=== PATIENT | male | born 1965 | race Caucasian/White ===

== ENCOUNTER 2017-11-15 10:28 | Outpatient (CLI) | payer OTHER ==
--- NOTE | 2017-11-15 19:34 | XRAY Report ---
Reason: AM STIFFNES IN WRIST AND FINGERS Procedure Date: 11/15/2017 Accession Number: [id number] / [id number] Procedure: XR - Knee 3 View RT CPT Code: FULL RESULT: EXAM: RIGHT KNEE RADIOGRAPHY EXAM DATE: 11/15/2017 10:53 AM. CLINICAL HISTORY: Pain at the base of the patella. No known injury. COMPARISON: None. TECHNIQUE: 3 views. FINDINGS: Bones: Normal. No fractures or bone lesions. Joints: Minimal chondrocalcinosis patellar cartilage. Tiny osteophytes and mild irregularity of the posterior patella articulating cortex. Joint compartments normal caliber. Bones in anatomic alignment. Small effusion. Soft Tissues: Normal. No soft tissue swelling. IMPRESSION: 1. Small effusion. 2. Mild chondromalacia patella. RADIA
--- NOTE | 2017-11-16 09:41 | XRAY Report ---
Reason: AM STIFFNES IN WRIST AND FINGERS Procedure Date: 11/15/2017 Accession Number: [id number] / [id number] Procedure: XR - Hand 3 View BILAT CPT Code: FULL RESULT: EXAMS: 1. Right Hand Radiography 2. Left Hand Radiography EXAM DATE: 11/15/2017 11:33 AM. CLINICAL HISTORY: AM STIFFNESS IN WRIST AND FINGERS. COMPARISON: None. TECHNIQUE: 3 views each hand. FINDINGS: Right: Bones: No fractures or bone lesions. Joints: Minimal early first [facility] degenerative change. No subluxations. Soft Tissues: Unremarkable.. Left: Bones: No fractures or bone lesions. Joints: Minimal early first [facility] degenerative change. No subluxations. Soft Tissues: Unremarkable. IMPRESSION: Minimal early first [facility] joint degenerative change bilaterally. Otherwise negative bilateral hands. RADIA
== END 2017-11-15 10:29 | disposition home or self-care (01) ==
LOC: DI 10:28
PROVIDERS: ATTEND Family Medicine
DX: M22.41 Chondromalacia patellae, right knee (principal); M25.461 Effusion, right knee; M18.0 Bilateral primary osteoarthritis of first carpometacarpal joints

== ENCOUNTER 2018-12-03 13:20 | Outpatient (CLI) | payer OTHER ==
--- NOTE | 2018-12-03 15:33 | XRAY Report ---
Reason: L KNEE PAIN SWELLING Procedure Date: 12/03/2018 Accession Number: [id number] / [id number] Procedure: XRN - Knee 4 View LT CPT Code: FULL RESULT: EXAM: LEFT KNEE RADIOGRAPHY EXAM DATE: 12/03/2018 01:44 PM. CLINICAL HISTORY: Left knee pain swelling. COMPARISON: None. TECHNIQUE: 4 views. FINDINGS: Bones: Normal. No fractures or bone lesions. Joints: There is a joint effusion, no lipohemarthrosis. No subluxation. Soft Tissues: Normal. No soft tissue swelling. IMPRESSION: Joint effusion without significant degenerative changes visualized. RADIA
== END 2018-12-03 13:21 | disposition home or self-care (01) ==
LOC: DI.N 13:20
PROVIDERS: ATTEND Physician Assistant
DX: M25.462 Effusion, left knee (principal)

== ENCOUNTER 2019-01-18 13:46 | Outpatient (CLI) | payer OTHER ==
--- NOTE | 2019-01-20 08:15 | MRI Report ---
Reason: LT KNEE JOINT PAIN Procedure Date: 01/18/2019 Accession Number: [id number] / [id number] Procedure: MRI - Knee LT W/O CPT Code: Final Report FULL RESULT: EXAM: LEFT KNEE MRI WITHOUT CONTRAST EXAM DATE: 01/18/2019 02:04 PM. CLINICAL HISTORY: Left knee joint pain. COMPARISON: KNEE 4 VIEW LT 12/03/2018. TECHNIQUE: Multiplanar, multisequence T1-weighted and fluid-sensitive sequences of the knee without contrast. Other: None. FINDINGS: Cruciate ligaments: The anterior and posterior crucial ligaments appear intact. Medial meniscus: There is some heterogenous signal consistent with some superficial tearing or fibrillation at the femoral articular surface of the posterior horn. Otherwise intact. Lateral meniscus: Intact. No tear is identified. Collateral ligaments: The medial and fibular collateral ligaments appear intact. Bones and articular surfaces: Moderate cartilage thinning, fissuring and irregularity in the medial greater than patellofemoral compartments. Subchondral edema at the medial tibial plateau greater than medial femoral condyle. Minimal subchondral edema in the patellofemoral compartment. Large joint effusion. Extensor mechanism: The patellar tendon and quadriceps insertion appear intact. IMPRESSION: 1. Moderate medial greater than patellofemoral compartment osteoarthritis. 2. Large joint effusion. 3. Degenerative-appearing superficial tear or fibrillation at the femoral articular surface of the posterior horn medial meniscus. RADIA
== END 2019-01-18 13:47 | disposition home or self-care (01) ==
LOC: DI 13:46
PROVIDERS: ATTEND Orthopaedic Surgery Sports Medicine
DX: M17.12 Unilateral primary osteoarthritis, left knee (principal); M23.204 Derangement of unspecified medial meniscus due to old tear or injury, left knee

== ENCOUNTER 2020-07-30 13:22 | Outpatient (CLI) | payer OTHER ==
[2020-07-30 13:55] VITALS: BP 141/87
--- NOTE | 2020-07-30 13:55 | SLEEP CARE CONSULTATION ---
Information from patient questionnaire entered by Ramila Warner. I have reviewed and concur with the information entered by Ramila Warner. This document represents the service I personally performed and the decisions made by me, Tamie Montano ARNP. History of Present Illness Service Date and Time: 07/30/2020 1322 Reason for Visit: New patient Chief Complaint: reports: Unrefreshed sleep, Snoring, Excessive daytime sleepiness, Observed pauses in breathing, Fatigue, Frequent awakenings at night Date of Onset: 6 month to a year Usual bedtime: 10 pm Time it takes to fall asleep: 10 minutes or more Snores at night: Yes Observed to quit breathing while asleep: Yes Sleeps alone due to snoring: Yes (sometimes) Number of times waking at night: 1-3 Reasons for waking at night: reports: Gasping for air, Bathroom Toss, Turn, or Twitch while sleeping: Yes Recalls having dreams: Yes (sometimes) Usually gets out of bed at: 5:30 am Feels refreshed in the morning: No Morning headache: No Sleepy or fatigued during the day: Yes Ever fallen asleep while driving: No (almost; some drowsy driving) Takes day naps: No Dreams during day naps: No Prior sleep studies: Yes Year and Where: 2015 - [place] Additional HPI information: I had the pleasure of seeing MARK VASQUEZ today regarding the possibility of him having a sleep disorder. He had a prior study in 2016 in [place]. His current complaints are excessive daytime sleepiness, fatigue, frequent night awakenings, snoring and unrefreshed sleep. He feels he has all the signs of sleep apnea. He is waking up 1-2 times at night because he feel he can't breath. He has a fan pointed on his face and sleeps with head elevated to help him sleep at night. He feels his snoring, gasping for air and daytime fatigue is getting worse. He did have a HST that showed mild sleep apnea in 2016 but he never started any treatment at that time. He moved to [facility] and never follow up with it. He has gained over 40 pounds over the last 5 years. He comes in to reverify if he still has sleep apnea and start treatment if needed. 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 Patient is Single and lives in [place]. Have you smoked in the past 12 months: Yes (cigars, 1 on avg daily) Years of smokin Alcohol use: Yes Alcohol amount and frequency: 1 glass 1 time a week Caffeine use: Yes Caffeine amount and frequency: 1-2 cups daily Family History Family history of sleep disordered breathing: Yes Family Hx Sleep Apnea: Mother: Snoring Allergies and Home Medications Drug allergies reviewed: Yes (NKDA) Home medication list reviewed: Yes Allergy and home medication list: Omeprazole, just started 2 days ago Review of Systems Weight gain over past 5 years: 40 plus Cardiovascular: denies: high blood pressure Respiratory: reports: shortness of breath, wheeze Gastrointestinal: reports: heartburn Neurological: denies: headaches Psychiatric: denies: anxiety, depression Ear/Nose/Throat: reports: wisdom teeth removed. denies: tonsillectomy Endocrine: reports: sluggishness, too hot or cold (to hot) Physical Exam Blood Pressure: 141/87 Cuff size: wrist Heart Rate: 82 O2 Saturation: 97 Height: 5 ft 6 in Weight: 232 lb Body Mass Index: 37.4 BMI Classification: Obese Neck circumference: 18.75 (inches) Mouth and throat: narrow oropharynx Soft palate: long Hard palate: normal Uvula visualization: 25% Mallampati Class III Tongue: enlarged in size with teeth torres on lateral edges Tonsils: 2+ Neck: normal w/o lymphadenopathy or thyromegaly Heart: regular rate and rhythm Lungs: clear bilaterally Impression and Plan 1. Suspected Obstructive Sleep Apnea-Hypopnea Syndrome, as previously diagnosed and as suggested by a history of loud and irregular snoring, observed cessation of breath while asleep, gasping or choking in sleep, frequent awakening during the night, unrefreshed sleep, cognitive impairment, and excessive daytime sleepiness. Narrow oropharynx and obesity are common predisposing factors for obstructive sleep apnea-hypopnea syndrome. I recommend proceeding to polysomnography to confirm the diagnosis and to assess severity. If the patient has significant sleep disordered breathing, a manual CPAP titration study will also be performed to find the optimal treatment pressure. I informed the patient of what the sleep studies involve and after some discussion, obtained agreement to proceed. The pathophysiology of obstructive sleep apnea-hypopnea syndrome was discussed with the patient and health risks of cardiovascular and cerebrovascular disease if not treated. Risks of drowsy driving discussed in detail and patient advised to avoid long distance driving and to extractor puller at the first sign of drowsiness. Patient agreed to plan. * Schedule polysomnography +- manual CPAP titration study and return in 1-2 weeks after the study to discuss result and initiate therapy. * Avoid long distance driving or driving when feeling sleepy. * Avoid alcohol, sedative and muscle relaxant around bedtime. * Attempt to lose weight. * Review instructions provided by trained office staff on how to prepare for the sleep study. * Return for follow-up after sleep study completed. Counseling Topics: Weight loss health impact Visit Type: In Office Time Spent with Patient (minutes): 30 Provider Statement: I spent 100% of the Face to Face Visit with the patient with greater than 50% spent counseling the patient and coordination of care.
== END 2020-07-30 13:23 | disposition home or self-care (01) ==
LOC: SC 13:22
PROVIDERS: ATTEND Nurse Practitioner Family
DX: G47.10 Hypersomnia, unspecified (principal); R06.83 Snoring; R06.81 Apnea, not elsewhere classified; G47.8 Other sleep disorders; R41.89 Other symptoms and signs involving cognitive functions and awareness; F17.290 Nicotine dependence, other tobacco product, uncomplicated; E66.9 Obesity, unspecified; Z68.37 Body mass index [BMI] 37.0-37.9, adult
CPT/HCPCS: 99203; 99212

== ENCOUNTER 2020-08-11 13:14 | Outpatient (CLI) | payer OTHER | END 2020-08-11 13:15 | disposition home or self-care (01) | LOC: SC 13:14 | PROVIDERS: ATTEND Nurse Practitioner Family | DX: G47.33 Obstructive sleep apnea (adult) (pediatric) (principal); R09.02 Hypoxemia; E66.9 Obesity, unspecified; Z68.37 Body mass index [BMI] 37.0-37.9, adult | CPT/HCPCS: 95806 ==

== ENCOUNTER 2020-08-25 16:52 | Outpatient (CLI) | payer OTHER ==
--- NOTE | 2020-08-25 17:05 | SLEEP CARE CONSULTATION ---
Information from patient questionnaire entered by Heather Garza. I have reviewed and concur with the information entered by Heather Garza. This document represents the service I personally performed and the decisions made by , Tamie Montano ARNP. History of Present Illness Service Date and Time: 08/25/2020 1700 Initial [place] Sleepiness Scale score: 14 (in 2020) Current [place] Sleepiness Scale score: 14 Additional HPI information: MARK VASQUEZ returns via Telehealth visit for follow up and results of the recently performed home sleep study. I explained the pathophysiology behind obstructive sleep apnea. We then spent quite a bit of time discussing different treatment options. For mild obstructive sleep apnea, surgery and oral appliance are alternatives to nasal CPAP therapy but in moderate or severe cases, nasal CPAP is the most effective and reliable treatment. Because apnea is primarily in supine position, then positional management therapy could be effective. Methods discussed such as positioning with pillows, using a T-shirt with tennis balls in the back, and shown commercial products that have a pillow format on back to prevent supine sleep. I reviewed the impact of weight changes on sleep apnea and strongly recommended losing weight. After some discussion, the patient opted to go with the nasal CPAP therapy. Nasal autoCPAP set at 4-15 cmH20 will be ordered with rationale explained. A manual titration study will be ordered if unable to find optimal pressure with office adjustments. I explained how CPAP machine works and what to expect when using the machine. Using CPAP every night in order to get used to it was emphasized. Patient advised to put CPAP mask on before getting into bed so as not to fall asleep without CPAP. To assist acclimation to CPAP use, it could also be used for a s hort time during day while reading or watching TV. Patient counseled not drink alcohol less than 4 hours before bedtime as it can increase snoring and apnea. Patient was cautioned about risks of drowsy driving until sleepiness symptoms resolve. Sleep Study - Results Type of Sleep Study: Home sleep study Prior sleep studies: Yes Year and Where: 2015 - [place] Polysomnography/Home Sleep Study results: Physician Impression: The quality of the study is good. The length of the study is adequate (> 240 minutes). Please also see the tabulated and graphic data. 1. Obstructive Sleep Apnea-Hypopnea (ICD-10 G47.33), severe, with an AHI of 50.9 /hr and lotus SaO2 of 73%. During the study, the patient had 273 apneas (273 obstructive, 0 central, 0 mixed) and 63 hypopneas. The longest episode lasted 84.5 seconds. The patient did not sleep supine during this study (supine AHI was 0 and non-supine, 50.95). 2. Hypoxemia (ICD-10 R09.02), moderate, with the lowest oxygen saturation of 73 % and 84.0 minutes with SaO2 under 90%. Baseline oxygen saturation was normal (Average oxygen saturation was 91%). Allergies and Home Medications Home medication list reviewed: Yes (no changes) Review of Systems Review of systems same as previous: Yes (no changes) Physical Exam Vital signs obtained and entered by: Telehealth visit to reduce exposure during Covid pandemic Height: 5 ft 6 in Impression and Plan 1. Obstructive Sleep Apnea-Hypopnea Syndrome, severe, with lowest oxygen saturation of 73%. Obviously this is the cause of the patients symptoms of unrefreshed sleep, and excessive daytime sleepiness. Positive pressure therapy could benefit his gastric reflux. As mentioned above, the patient will be started on nasal autoCPAP therapy with pressure set at 4-15 cmH2O. A manual titration study will be completed if unable to find optimal treatment pressure with office adjustments. Compliance guidelines also reviewed. A copy of compliance guidelines will be given for reference at check out. 2. Hypoxemia, moderate, with the lowest oxygen saturation of 73 % and 84.0 minutes with SaO2 under 90%. His baseline oxygen saturation was normal with an average oxygen saturation of 91%. * Nasal auto CPAP therapy, pressure at 4-15 cm H2O. * Attempt to lose weight. * Avoid alcohol consumption near bedtime. * The patient is again cautioned about driving until sleepiness completely resolves. * Return one month after CPAP obtained. I will assess response to therapy and compliance at that time. Counseling Topics: Weight loss health impact Visit Type: Telehealth Video Video Type: VSee Patient Location: Home Location of Provider: Office Patient agrees and consents to this telehealth visit type: Yes Patient agrees to have their insurance billed: Yes Time Spent with Patient (minutes): 16 Provider Statement: I spent 100% of the Telehealth Video Call with the patient with greater than 50% spent counseling the patient and coordination of care.
== END 2020-08-25 16:53 | disposition home or self-care (01) ==
LOC: SC 16:52
PROVIDERS: ATTEND Nurse Practitioner Family
DX: G47.33 Obstructive sleep apnea (adult) (pediatric) (principal); R09.02 Hypoxemia

== ENCOUNTER 2020-10-06 08:53 | Day surgery (SDC) | payer OTHER ==
[2020-10-06] MEDS ORDERED: LACTATED RINGERS 1,000 ML IV ONE (09:27)
[2020-10-06] MEDS ORDERED: MIDAZOLAM 2 MG/2 ML VIAL ONE ×2 (09:42→09:43)
[2020-10-06] MEDS ORDERED: fentaNYL 250 MCG/5 ML VIAL ONE (09:43)
[2020-10-06 10:45] VITALS: BP 113/57
== END 2020-10-06 08:54 | disposition home or self-care (01) ==
LOC: SDS 08:53
PROVIDERS: ATTEND Surgery
DX: Z12.11 Encounter for screening for malignant neoplasm of colon (principal); K64.8 Other hemorrhoids
CPT/HCPCS: 45378; J3010; J7120